=== PATIENT | female | born 1970 | race African-American/Black ===

== ENCOUNTER 2024-02-16 20:52 | Emergency (ER) | payer BC, SELFPAY ==
--- NOTE | ~2024-02-16 | XR_ITS ---
EXAM: XR hand LT min 3V DATE: 02/16/2024 21:04 HISTORY: laceration on palmar side of hand . COMPARISON: None available. FINDINGS: Normal mineralization. No fracture or dislocation. No lytic or blastic lesion. Mild scatte red degenerative changes. No erosion or periosteal change. Soft tissues within normal limits. IMPRESSION: No acute osseous finding the left hand. No radiopaque foreign body. Reviewed, dictated and finalized at location [facility].
[2024-02-16 21:26] VITALS: BP 122/72; PULSE 62; RESP 18; TEMP 36.4; O2SAT 100
--- NOTE | 2024-02-17 01:27 | ED_ITS ---
HPI - General Adult General Chief complaint: Wound/Laceration Stated complaint: left hand laceration Time Seen by Provider: 02/17/24 00:48 History of Present Illness HPI narrative: This is a 53-year-old female presenting with a laceration to her left hand. Patient was using a hot box checker and slipped grating 1 cm laceration over the thenar eminence. No functional deficits. No foreign bodies. Exam Narrative: APPEARANCE: No apparent distress. Head: atraumatic. EYES: EOMI, NOSE: Atraumatic NECK: Trachea midline RESPIRATORY: No increased rate of breathing CARDIOVASCULAR: RRR, ABDOMINAL: Non-distended MUSCULOSKELETAl: Focal exam of the left hand revealed intact abduction/ abduction/ opposition of the thumb. Cap refill less than 2 seconds. NEURO: Alert. Moving 4/4 extremities SKIN:: 1 cm laceration over the thenar eminence on the left hand PSYCHIATRIC: Normal affect Course Vital Signs Vital signs: Vital Signs Temperature 97.5 F L 02/16/24 21:26 Pulse Rate 62 02/16/24 21:26 Respiratory Rate 18 02/16/24 21:26 Blood Pressure 122/72 02/16/24 21:26 Pulse Oximetry 100 02/16/24 21:26 Temperature 97.5 F L 02/16/24 21:26 Pulse Rate 62 02/16/24 21:26 Respiratory Rate 18 02/16/24 21:26 Blood Pressure 122/72 02/16/24 21:26 Pulse Oximetry 100 02/16/24 21:26 Medical Decision Making [facility] Narrative Medical decision making narrative: -Course: 53-year-old female presenting with laceration. X-ray negative for foreign body. No functional deficits or injuries the deeper tissues. 1 cm laceration was repaired using x2 4-0 Prolene sutures in a simple interrupted pattern. Tdap given. Motrin, Tylenol given. Patient discharged with instructions to have sutures out in 10-14 days. Given return precautions for infection. Vital Signs Vital Signs: Vital Signs Temperature 97.5 F L 02/16/24 21:26 Pulse Rate 62 02/16/24 21:26 Respiratory Rate 18 02/16/24 21:26 Blood Pressure 122/72 02/16/24 21:26 Pulse Oximetry 100 02/16/24 21:26 Temperature 97.5 F L 02/16/24 21:26 Pulse Rate 62 02/16/24 21:26 Respiratory Rate 18 02/16/24 21:26 Blood Pressure 122/72 02/16/24 21:26 Pulse Oximetry 100 02/16/24 21:26 Discharge Plan Discharge Clinical Impression: Laceration Patient Disposition: Home, Self-Care Condition: Stable Instructions: Antibiotic Form, Care For Your Stitches (ED), Laceration (ED) Additional Instructions: Please follow-up with your primary care physician in 10-14 days for suture removal. Return if you develop signs of infection or severe pain. Follow-up/Referrals: Paramjit,MD [place] [Primary Care Provider] -
[2024-02-17] MEDS: ACETAMINOPHEN 500 MG TABLET 1000 MG PO (02:16)
[2024-02-17] MEDS: IBUPROFEN 400 MG TABLET 800 MG PO (02:17)
[2024-02-17] MEDS: TETANUS,DIPHTHERIA,AC PERTUSSIS ADULT (0.5 ML) BOOSTRIX IM (02:18)
[2024-02-17 02:25] VITALS: BP 118/54; PULSE 65; RESP 15; O2SAT 100
== END 2024-02-17 02:26 | disposition home or self-care (01) ==
PROVIDERS: Emergency Provider Emergency Medicine; PCP Family Medicine
DX: S61.412A Laceration without foreign body of left hand, initial encounter (principal); Z23 Encounter for immunization; W27.8XXA Contact with other nonpowered hand tool, initial encounter
CPT/HCPCS: 12001; 73130; 90471; 90715; 99283; A9270